=== PATIENT | male | born 1970 | race Caucasian/White ===

== ENCOUNTER 2016-09-02 13:05 | Emergency (ER) | payer BC, OTHER ==
--- NOTE | 2016-09-02 13:17 | EDM.PDOC ---
ED HPI GENERAL MEDICAL PROBLEM - General Chief Complaint: Upper Extremity Injury/Pain Stated Complaint: LEFT ARM PAIN Time Seen by Provider: 09/02/16 13:15 Source of Information: Reports: Patient - History of Present Illness INITIAL COMMENTS - FREE TEXT/NARRATIVE: HISTORY AND PHYSICAL: History of present illness: []Patient had 10-15 pound piece of metal free fall landing on his hand last evening he presents today complains of 5 out of 10 pain patient denies other injury no fever nausea vomiting chills sweats Tetanus status is up-to-date per patient Review of systems: As per history of present illness and below otherwise all systems reviewed and negative. Past medical history: As per history of present illness and as reviewed below otherwise noncontributory. Surgical history: As per history of present illness and as reviewed below otherwise noncontributory. Social history: No reported history of drug or alcohol abuse. Family history: As per history of present illness and as reviewed below otherwise noncontributory. Physical exam: HEENT: Atraumatic, normocephalic, pupils reactive, negative for conjunctival pallor or scleral icterus, mucous membranes moist, throat clear, neck supple, nontender, trachea midline. Lungs: Clear to auscultation, breath sounds equal bilaterally, chest nontender. Heart: S1S2, regular, negative for clicks, rubs, or JVD. Abdomen: Soft, nondistended, nontender. Negative for masses or hepatosplenomegaly. Negative for costovertebral tenderness. Pelvis: Stable nontender. Genitourinary: Deferred. Rectal: Deferred. Extremities: Atraumatic, negative for cords or calf pain. Neurovascular unremarkable. Left hand unaffected above the wrist partial-thickness laceration scabbed over well healed no redness warmth or exudate of drainage there is pain in the anatomical snuffbox otherwise entire limb is neurovascularly intact Neuro: Awake, alert, oriented. Cranial nerves II through XII unremarkable. Cerebellum unremarkable. Motor and sensory unremarkable throughout. Exam nonfocal. Diagnostics: []Left hand 3 view Therapeutics: []Splint Rest ice ibuprofen Impression: Left Hand pain Contusion Definitive disposition and diagnosis as appropriate pending reevaluation and review of above. Left Hand Pain Score (Numeric/FACES): 8 - Related Data Allergies Allergy/AdvReac Type Severity Reaction Status Date / Time Penicillins Allergy Other Verified 09/02/16 13:20 Home Meds: Home Meds Aspirin [Ecotrin] 81 mg PO DAILY 09/02/16 [History] Hydrochlorothiazide 12.5 mg PO DAILY 09/02/16 [History] Lisinopril 10 mg PO BEDTIME 09/02/16 [History] Lisinopril 20 mg PO DAILY 09/02/16 [History] Review of Systems - Review of Systems Review Of Systems: ROS reveals no pertinent complaints other than HPI. ED EXAM, GENERAL - Physical Exam Exam: See Below Course - Vital Signs Last Recorded V/S: Last Vital Signs Temp 35.9 C 09/02/16 13:14 Pulse 88 09/02/16 13:14 Resp 19 09/02/16 13:14 BP 133/85 09/02/16 13:14 Pulse Ox 97 09/02/16 13:14 - Orders/Labs/Meds Orders: Active Orders 24 hr Category Date Time Status Hand Comp Min 3V Lt [CR] Stat Exams 09/02/16 13:17 Taken Departure - Departure Time of Disposition: 14:01 Disposition: Home, Self-Care 01 Condition: Good Clinical Impression: Contusion - Discharge Information Forms: ED Department Discharge Additional Instructions: Splint for comfort Rest Ice 20 minute intervals 3 times daily 7-10 days Ibuprofen 400 mg 3 times daily 7-10 days Follow-up with primary care or occupational health as needed or in 2 weeks The following information is given to patients seen in the emergency department who are being discharged to home. This information is to outline your options for follow-up care. We provide all patients seen in our emergency department with a follow-up referral. The need for follow-up, as well as the timing and circumstances, are variable depending upon the specifics of your emergency department visit. If you don't have a primary care physician on staff, we will provide you with a referral. We always advise you to contact your personal physician following an emergency department visit to inform them of the circumstance of the visit and for follow-up with them and/or the need for any referrals to a consulting specialist. The emergency department will also refer you to a specialist when appropriate. This referral assures that you have the opportunity for follow-up care with a specialist. All of these measure are taken in an effort to provide you with optimal care, which includes your follow-up. Under all circumstances we always encourage you to contact your private physician who remains a resource for coordinating your care. When calling for follow-up care, please make the office aware that this follow-up is from your recent emergency room visit. If for any reason you are refused follow-up, please contact the [facility] emergency department at and asked to speak to the emergency department charge nurse. - My Orders Last 24 Hours: My Active Orders 09/02/16 13:17 Hand Comp Min 3V Lt [CR] Stat - Assessment/Plan Last 24 Hours: My Active Orders 09/02/16 13:17 Hand Comp Min 3V Lt [CR] Stat
[2016-09-02 14:23] VITALS: BP 127/70
--- NOTE | 2016-09-04 14:49 | CR ---
EXAM DATE: 09/02/16 PATIENT'S AGE: 45 Patient: DULCE DENNIS Facility: [place], [place] Site . Site : [id number] Study: XRay Extremity Left [id number] 1:37:58 PM Ordering Physician: Jevon Peck Final Report: HISTORY: Injury with laceration. Technique: Three views left hand. Comparison: None. Findings: No acute fracture is seen. There is no joint dislocation. No radiopaque foreign body is present. Impression: Negative exam of the left hand. Dictated by Neftali Riddle MD @ Sep 02 2016 2:13PM (Electronic Signature) Report Signed by Proxy. [email or web address]
== END 2016-09-02 14:10 | disposition home or self-care (01) ==
LOC: MW.ED 13:05
DX: S60.222A Contusion of left hand, initial encounter (principal); Z88.0 Allergy status to penicillin; Z79.82 Long term (current) use of aspirin; Z79.899 Other long term (current) drug therapy; W20.8XXA Other cause of strike by thrown, projected or falling object, initial encounter
CPT/HCPCS: 73130-26-LT; 73130-LT; 99282; 99283